=== PATIENT | male | born 1985 | race Caucasian/White ===

== ENCOUNTER 2018-03-06 02:43 | Emergency (ER) | payer OTHER ==
[~2018-03-06] VITALS: Ht 167.6 cm; Wt 81.6 kg
[2018-03-06 02:59] VITALS: BP 114/66
--- NOTE | 2018-03-06 02:59 | NUR ---
TO BED # 9 AMB, REPORT GIVEN TO AIDE LARA
--- NOTE | 2018-03-06 03:05 | NUR ---
32/M CAME IN W C/O LT SIDE FACE/HEADACHE X 3 DAYS. REPORTS HE HAD ROOT CANAL DONE ON LT UPPER TOOTH 3 DAYS AGO AND PRESCRIBED TYLENOL WITH CODEINE. PT TOOK RX AT MIDNIGHT WITHOUT RELIEF. DENIES PMH
--- NOTE | 2018-03-06 03:33 | NUR ---
Dr. Barclay evaluating patient at bedside.
[2018-03-06] MEDS ORDERED: fentaNYL 0.05 MG/ML VIAL IM ONE (03:35)
[2018-03-06 04:15] VITALS: BP 128/72
== END 2018-03-06 04:12 | disposition home or self-care (01) ==
LOC: MED 02:43
DX: G89.18 Other acute postprocedural pain (principal); R51 Headache
CPT/HCPCS: 96372; 99283; J3010